=== PATIENT | female | born 1940 | race Caucasian/White ===

== ENCOUNTER 2017-03-21 09:22 | Emergency (ER) | payer MEDICARE ==
[2017-03-21 10:42] LABS: Hematocrit 41.3 % (36.0-47.0); Mean Platelet Volume 7.1 fL (7.4-10.4); Red Blood Cell (RBC) Count 3.85 mill/uL (4.20-5.40)
[2017-03-21 10:48] LABS: PTT 30.9 SEC (22.9-36.1); Prothrombin Time 13.9 SEC (12.0-14.7)
[2017-03-21 11:01] LABS: #Lymphocytes 0.5 thou/uL (1.20-3.40); #Monocytes 0.5 thou/uL (0.11-0.59); %Basophils 0.1 % (0.0-1.0); %Eosinophils 0.4 % (0.0-10.0); %Lymphocytes 8.5 % (21.0-51.0); %Monocytes 7.8 % (0.0-10.0)
[2017-03-21 11:02] LABS: Troponin I Less than 0.010 ng/mL (< 0.028)
[2017-03-21 11:05] LABS: Anion Gap 18 mmol/L (10-20); BUN (Urea Nitrogen) 17 mg/dL (9.8-20.1); CK (CPK) 48 U/L (29-168); Calc. Creatinine Clearance 0 mL/min (70-130); Calcium 8.6 mg/dL (7.8-10.44); Carbon Dioxide 20 mmol/L (23-31); Chloride 106 mmol/L (98-107); Estimated GFR-MDRD 83
[2017-03-21] MEDS ORDERED: Ondansetron ODT 4 MG TAB ONE (11:16)
--- NOTE | 2017-03-21 12:21 | RAD ---
AP VIEW LEFT SHOULDER: HISTORY: Fall. History of seizure. AP view left shoulder demonstrates what appears to be a fracture distal left clavicle. Left shoulde r single AP view is not in optimum anatomic position but appears to be otherwise unremarkable. IMPRESSION: Findings concerning for distal displaced left clavicular fracture. POS: [facility]
--- NOTE | 2017-03-21 12:33 | RAD ---
TWO VIEWS LEFT CLAVICLE: HISTORY: Trauma with left shoulder pain. FINDINGS: Two views left clavicle demonstrate a displaced overlapping mid to distal left clavicular fracture w ith inferior displacement of the distal fracture fragment. IMPRESSION: Displaced left clavicular fracture. POS: [facility]
--- NOTE | 2017-03-21 12:48 | CT ---
CT BRAIN: HISTORY: Trauma, 76-year-old female. FINDINGS: Noncontrast-enhanced CT images of the brain are obtained. There is a left frontoparietal scalp hematoma. The brain is unremarkable. No evidence of acute int racranial masses, hemorrhages, strokes, or contusions seen. The calvarium is intact. IMPRESSION: Left frontoparietal scalp hematoma; otherwise, unremarkable CT brain. POS: [facility]
--- NOTE | 2017-03-21 12:56 | CT ---
CT CERVICAL SPINE: HISTORY: A 76-year-old with a history of trauma. FINDINGS: Axial images are obtained with coronal and sagittal reconstructions. CT images cervical spine demon strate mild anterolisthesis of C3 on C4. There is disk space height loss with anterior and posterio r osteophytes at C4-5 and more significant disease is also seen at C5-6, C6-7, and C7-T1. Findings compatible with changes of spondylosis. No evidence of acute cervical spine fracture is seen. IMPRESSION: 1. Multilevel mid and lower cervical changes of spondylosis. 2. Multiple areas of heterogeneity are seen in the right and left thyroid lobes. These may represe nt thyroid lesions. Correlate with elective sonography. POS: [facility]
== END 2017-03-21 12:37 | disposition home or self-care (01) ==
LOC: ERS 09:22
DX: S42.032A Displaced fracture of lateral end of left clavicle, initial encounter for closed fracture (principal); G43.909 Migraine, unspecified, not intractable, without status migrainosus; G40.909 Epilepsy, unspecified, not intractable, without status epilepticus; Z79.899 Other long term (current) drug therapy; Z79.82 Long term (current) use of aspirin; W17.89XA Other fall from one level to another, initial encounter
CPT/HCPCS: 36415; 70450; 72125; 80048; 82550; 82553; 84484; 85025; 85610; 85730; 96372; J2270; Q0162

== ENCOUNTER 2017-07-21 15:37 | Outpatient (CLI) | payer MEDICARE ==
--- NOTE | 2017-07-21 16:34 | CT ---
CT HEAD NONCONTRAST 07/21/17 HISTORY: Fall. Dizziness. Headache. COMPARISON: 03/21/17 FINDINGS: There is no evidence of acute intracranial hemorrhage or infarct. The ventricles appear normal in siz e, shape, and position. Diffuse cortical atrophy and mild chronic ischemic small vessel disease are a pparent. The visualized paranasal sinuses remain well aerated. IMPRESSION: No acute intracranial abnormalities are demonstrated. POS: [facility]
== END 2017-07-21 15:38 | disposition home or self-care (01) ==
LOC: SCSCT 15:37
PROVIDERS: ATTEND Psychiatry & Neurology Neurology
DX: S06.890A Other specified intracranial injury without loss of consciousness, initial encounter (principal)
CPT/HCPCS: 70450

== ENCOUNTER 2017-11-10 10:56 | Emergency (ER) | payer MEDICARE ==
[2017-11-10 11:55] LABS: Bilirubin Negative (Negative); Blood, Urine Trace (Negative); Clarity CLEAR (Clear); Glucose, Urine (Dipstick) Negative (Negative); Leukocyte Negative (Negative); Nitrite Negative (Negative); Protein, Urine (Dipstick) Negative (Neg-Trace); Specific Gravity, Urine 1.008 (1.002-1.036); Urobilinogen 0.2 mg/dL (0.2-1.0); pH, Urine 6.5 (5.0-9.0)
[2017-11-10 12:01] LABS: Bacteria/HPF None Seen HPF (None Seen); Hyaline Casts/LPF 0-3 HYALINE CAST LPF (0-3 Hyaline); Pathc Cast-AUWi Flag 0.14 (0-2.49); RBC/HPF 0-3 HPF (0-3); Squamous Epithelial 0-3 HPF (0-3); WBC/HPF None Seen HPF (0-3)
[2017-11-10 12:44] LABS: #Lymphocytes 0.9 thou/uL (1.20-3.40); #Monocytes 0.6 thou/uL (0.11-0.59); #Neutrophils 2.8 thou/uL (1.40-6.50); %Basophils 0.9 % (0.0-1.0); %Eosinophils 0.7 % (0.0-10.0); %Lymphocytes 19.6 % (21.0-51.0); %Monocytes 13.5 % (0.0-10.0); %Neutrophils 65.4 % (42.0-75.0); Hemoglobin 13.5 g/dL (12.0-16.0); Mean Corpuscular HGB CONC 33.9 g/dL (32.0-36.0); Mean Corpuscular Hemoglobin 35.8 pg (27.0-31.0); Mean Platelet Volume 6.5 fL (7.4-10.4); Platelet Count 278 thou/uL (130-400); RBC Distribution Width 11.7 % (11.5-14.5); Red Blood Cell (RBC) Count 3.77 mill/uL (4.20-5.40); White Blood Cell (WBC) Count 4.3 thou/uL (4.8-10.8)
[2017-11-10 13:02] LABS: ALT (SGPT) 33 U/L (8-55); AST (SGOT) 26 U/L (5-34); Albumin 3.8 g/dL (3.4-4.8); Alkaline Phosphatase 69 U/L (40-150); Anion Gap 11 mmol/L (10-20); BUN (Urea Nitrogen) 13 mg/dL (9.8-20.1); Bilirubin, Total 0.3 mg/dL (0.2-1.2); CK (CPK) 46 U/L (29-168); Calc. Creatinine Clearance 0 mL/min (70-130); Calcium 8.8 mg/dL (7.8-10.44); Carbon Dioxide 24 mmol/L (23-31); Chloride 105 mmol/L (98-107); Estimated GFR-MDRD 84; Globulin 2.6 g/dL (2.4-3.5); Glucose 97 mg/dL (83-110); Potassium 3.6 mmol/L (3.5-5.1); Protein, Total 6.4 g/dL (6.0-8.3); Sodium 136 mmol/L (136-145)
[2017-11-10 13:04] LABS: MDiff Complete? YES; Macrocytosis SLIGHT = 6-15 cells (100X) (0-5/hpf); PLT Morphology Comment Appears Adequate
[2017-11-10 13:06] LABS: CKMB 0.6 ng/mL (0-6.6); Troponin I Less than 0.010 ng/mL (< 0.028)
--- NOTE | 2017-11-10 13:24 | CT ---
CT HEAD WITHOUT CONTRAST: Technique: Multiple axial tomograms were obtained through the head without IV enhancement. History: Metal status change. Comparison: 07-21-17 FINDINGS: Mild cortical volume loss. Ventricles are upper normal size, but stable. No evidence of intracranial mass, hemorrhage, or infarct. No interval change noted. IMPRESSION: No acute abnormality identified. POS: [facility]
--- NOTE | 2017-11-10 13:30 | RAD ---
PORTABLE CHEST ONE VIEW: Date: 11-10-17 Time: 12:27 p.m. History: Altered mental status. Dizziness. FINDINGS: Comparison is made with exam of 05-27-14. The heart size is borderline. The aorta is tortuous. There are post op changes in the left clavicle. No lobar consolidation, pneumothoraces, curt pulmonary edema or pleural effusions are seen. There ar e calcified breast implants. IMPRESSION: No acute process. POS: [facility]
--- NOTE | 2017-11-13 18:30 | EKG ---
Test Reason : Blood Pressure : / mmHG Vent. Rate : 081 BPM Atrial Rate : 081 BPM P-R Int : 184 ms QRS Dur : 072 ms QT Int : 374 ms P-R-T Axes : 061 -06 035 degrees QTc Int : 434 ms Normal sinus rhythm T wave abnormality, consider anterior ischemia Abnormal ECG Confirmed by MICKEY DYER D.O. ([id number]), video effects editor HAJA ANDERSON ([id number]) on 11/13/2017 6:29:44 PM Referred By: Confirmed By:MICKEY DYER D.O.
== END 2017-11-10 14:20 | disposition home or self-care (01) ==
LOC: ERS 10:56
DX: R42 Dizziness and giddiness (principal); R53.1 Weakness; G40.909 Epilepsy, unspecified, not intractable, without status epilepticus; G43.909 Migraine, unspecified, not intractable, without status migrainosus; Z79.899 Other long term (current) drug therapy
CPT/HCPCS: 36415; 70450; 71045; 80053; 81003; 81015; 82553; 84443; 84484; 85025; 93005

== ENCOUNTER 2017-11-17 16:57 | Emergency (ER) | payer MEDICARE ==
[2017-11-17 17:47] LABS: #Lymphocytes 0.8 thou/uL (1.20-3.40); #Monocytes 0.5 thou/uL (0.11-0.59); %Basophils 0.4 % (0.0-1.0); %Eosinophils 1.1 % (0.0-10.0); %Lymphocytes 17.9 % (21.0-51.0); %Monocytes 11.9 % (0.0-10.0); %Neutrophils 68.7 % (42.0-75.0); Hemoglobin 14.3 g/dL (12.0-16.0); Mean Corpuscular HGB CONC 33.8 g/dL (32.0-36.0); Mean Corpuscular Hemoglobin 35.6 pg (27.0-31.0); Mean Platelet Volume 7.2 fL (7.4-10.4); Platelet Count 266 thou/uL (130-400); Red Blood Cell (RBC) Count 4.02 mill/uL (4.20-5.40); White Blood Cell (WBC) Count 4.4 thou/uL (4.8-10.8)
[2017-11-17 18:15] LABS: CKMB 0.6 ng/mL (0-6.6); Troponin I Less than 0.010 ng/mL (< 0.028)
[2017-11-17 18:19] LABS: Bilirubin Negative (Negative); Blood, Urine Large (Negative); Clarity CLEAR (Clear); Glucose, Urine (Dipstick) Negative (Negative); Leukocyte Negative (Negative); Nitrite Negative (Negative); Protein, Urine (Dipstick) Negative (Neg-Trace); Specific Gravity, Urine 1.009 (1.002-1.036); Urobilinogen 0.2 mg/dL (0.2-1.0); pH, Urine 6.5 (5.0-9.0)
[2017-11-17 18:23] LABS: Bacteria/HPF None Seen HPF (None Seen); Hyaline Casts/LPF 4-6 HYALINE CAST LPF (0-3 Hyaline); RBC/HPF GREATER THAN 50-TNTC HPF (0-3); WBC/HPF 0-3 HPF (0-3)
--- NOTE | 2017-11-17 18:55 | RAD ---
PORTABLE CHEST: Date: 11-17-17 Provided Clinical History: Dizziness, weakness. FINDINGS: Comparison 11-10-17. Cardiac and mediastinal silhouette is unchanged in appearance. Post-operative changes involving the l eft clavicle, bilateral breast prostheses and metallic density overlying the right lung apex are agai n noted. There is no focal consolidation, pleural fluid or pneumothorax apparent. IMPRESSION: Stable radiographic appearance of the chest. POS: [facility]
[2017-11-17 18:58] LABS: Albumin 3.7 g/dL (3.4-4.8)
[2017-11-17 18:59] LABS: Chloride 107 mmol/L (98-107); Potassium 3.7 mmol/L (3.5-5.1); Sodium 137 mmol/L (136-145)
--- NOTE | 2017-11-17 18:59 | CT ---
CT BRAIN: Date: 11-17-17 Provided Clinical History: Dizziness and weakness. FINDINGS: Comparison is made with the study dated 11-10-17. The ventricular system is unchanged in size and morphology. There is no evidence for intracranial hem orrhage or mass effect. A region of hyposulcation and cortical thickening involving the right posteri or frontal region is redemonstrated, similar to the prior studies. There is no shift of the midline s tructures. The basilar cisterns appear patent. The extracranial soft tissues and osseous structures d emonstrate no acute findings. IMPRESSION: 1. No evidence for intracranial hemorrhage or mass effect. Stable CT of the brain with respect to the prior studies. 2. 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 This could be furth er investigated with nonemergent brain MRI as clinically indicated. POS: [facility]
[2017-11-17 19:00] LABS: Calcium 8.5 mg/dL (7.8-10.44)
[2017-11-17 19:01] LABS: Globulin 2.6 g/dL (2.4-3.5); Glucose 106 mg/dL (83-110); Protein, Total 6.3 g/dL (6.0-8.3)
[2017-11-17 19:02] LABS: Anion Gap 11 mmol/L (10-20); Bilirubin, Total 0.3 mg/dL (0.2-1.2); Carbon Dioxide 23 mmol/L (23-31)
[2017-11-17 19:03] LABS: Alkaline Phosphatase 63 U/L (40-150)
[2017-11-17 19:04] LABS: Calc. Creatinine Clearance 0 mL/min (70-130); Estimated GFR-MDRD 85
[2017-11-17 19:05] LABS: BUN (Urea Nitrogen) 15 mg/dL (9.8-20.1)
[2017-11-17 19:06] LABS: ALT (SGPT) 32 U/L (8-55); AST (SGOT) 24 U/L (5-34)
== END 2017-11-17 22:54 | disposition home or self-care (01) ==
LOC: ERS 16:57
DX: E86.0 Dehydration (principal); G40.909 Epilepsy, unspecified, not intractable, without status epilepticus; G43.909 Migraine, unspecified, not intractable, without status migrainosus; Z79.82 Long term (current) use of aspirin; Z79.899 Other long term (current) drug therapy
CPT/HCPCS: 36415; 51701; 70450; 71045; 80053; 81003; 81015; 82553; 84484; 85025; 93005; 96360; 96361; A4353

== ENCOUNTER 2017-11-23 14:03 | Emergency (ER) | payer MEDICARE ==
--- NOTE | 2017-11-23 15:04 | RAD ---
LEFT KNEE 4 VIEWS: Date: 11/23/17 HISTORY: Trauma. Pain. Fall. COMPARISON: None. FINDINGS: There is degenerative change involving all three compartments, greatest along the lateral compartment . No fracture or malalignment. There is diffuse bone demineralization. No significant joint fluid. IMPRESSION: No post-traumatic change. Chronic changes as described above. POS: [facility]
--- NOTE | 2017-11-23 15:10 | RAD ---
THREE VIEWS LEFT ANKLE: Date: 11-23-17 Comparison: None. History: Trauma, pain. FINDINGS: There is post-operative hardware associated with the distal left fibula/lateral malleolus as well as the medial malleolus. The bones appear somewhat demineralized. The talar dome and the ankle mortise a ppear intact. No acute fracture or evidence of dislocation is seen. IMPRESSION: Chronic findings as detailed above. No acute findings are seen. POS: [facility]
--- NOTE | 2017-11-23 15:11 | RAD ---
THREE VIEWS RIGHT ANKLE: Date: 11-23-17 History: Fall, trauma, pain. FINDINGS: The bones are demineralized. The talar dome and ankle mortise appear intact. There is no displaced fr acture or evidence of dislocation seen. IMPRESSION: No acute findings. POS: [facility]
--- NOTE | 2017-11-23 15:12 | RAD ---
FOUR VIEWS RIGHT KNEE: Date: 11-23-17 Comparison: None. History: Fall, trauma, pain. FINDINGS: There is no knee joint effusion, displaced fracture, or evidence of dislocation seen. There is mild m edial and lateral compartment narrowing. IMPRESSION: No acute findings. POS: [facility]
== END 2017-11-23 15:26 | disposition home or self-care (01) ==
LOC: SCSER 14:03
DX: S90.02XA Contusion of left ankle, initial encounter (principal); S90.01XA Contusion of right ankle, initial encounter; S80.02XA Contusion of left knee, initial encounter; S80.01XA Contusion of right knee, initial encounter; W19.XXXA Unspecified fall, initial encounter; G40.909 Epilepsy, unspecified, not intractable, without status epilepticus; G43.909 Migraine, unspecified, not intractable, without status migrainosus
CPT/HCPCS: 36415; 82607; 84436

== ENCOUNTER 2018-01-07 03:23 | Emergency (ER) | payer MEDICARE ==
--- NOTE | 2018-01-07 07:55 | CT ---
PRELIMINARY REPORT/[facility]/EMERGENTY AFTER-HOURS PROCEDURE CT Head Without Intravenous Contrast CLINICAL HISTORY: 77 years old, female; Injury or trauma; Fall; Initial encounter; Abrasion; Not specified; Patient HX: Previous on pacs; Er 8; , F77 presents to ed for mechanical fall. Ems reports mechanical fall that w as witnessed by pt's caregiver. Ems reports left leg swelling and reports pt is unable to bear weight on her left leg. Pt reports falling backwards and hitting her head. Ems reports HX of dementia. TECHNIQUE: Axial computed tomography images of the head/brain without intravenous contrast. COMPARISON: No relevant prior studies available. FINDINGS: No definite acute skull fracture. Included paranasal sinuses are essentially clear. No acute intracranial hemorrhage or mass effect. Ventricle size is normal for age. There is mild, relatively symmetrical decreased attenuation in the periventricular white matter, like ly from microvascular disease. No definite acute infarct by CT. IMPRESSION: No acute intracranial bleed or mass effect. Changes of microvascular disease. Thank you for allowing us to participate in the care of your patient. Dictated and Authenticated by: Augie Mckeon MD 01/07/2018 5:23 AM Central Time ([place] & [place]) FINAL REPORT HEAD CT WITHOUT CONTRAST: HISTORY: Trauma. Mechanical fall. Posttraumatic pain. COMPARISON: None. TECHNIQUE: Noncontrast head CT is performed from the skull base to the skull vertex. FINDINGS: This report is in agreement with the preliminary report by [facility]. No acute intracranial process. POS: [facility]
--- NOTE | 2018-01-07 08:02 | RAD ---
2 VIEWS LEFT ANKLE: Date: 01/07/18 COMPARISON: 11/23/17. HISTORY: Fall with left ankle pain. FINDINGS: Two views of the left ankle show the patient to be status post open reduction and internal fixation o f the medial malleolus with two screws in the distal fibula with a plate and screws. There appears to be an acute fracture in the distal tibial metaphysis above the medial malleolus screws. This was not seen on the prior examination. IMPRESSION: New acute fracture of the distal tibia. POS: [facility]
--- NOTE | 2018-01-07 08:03 | RAD ---
2 VIEWS LEFT TIBIA AND FIBULA: Date: 01/07/18 COMPARISON: Ankle radiograph dated 11/23/17. FINDINGS: Fall with left leg pain. FINDINGS: Two views of the left leg show hardware surrounding the ankle. In the distal tibial metaphysis, there is a lucency from an acute fracture just above the hardware. Surrounding soft tissue swelling is see n. IMPRESSION: Acute fracture of the distal tibial metaphysis. POS: [facility]
--- NOTE | 2018-01-07 08:04 | RAD ---
SINGLE VIEW LEFT HIP: Date: 01/07/18 HISTORY: Fall with left leg pain. FINDINGS: Single view of the left hip shows the patient to be status post left hip arthroplasty without perihar dware lucency or fracture. No focal soft tissue swelling is seen. IMPRESSION: No evidence of acute osseous abnormality. POS: [facility]
--- NOTE | 2018-01-07 09:20 | CON ---
DATE OF CONSULTATION: 01/07/2018 ORTHOPEDIC CONSULTATION NOTE PRINCIPAL DIAGNOSIS: Left extraarticular distal tibia fracture. BRIEF HISTORY OF PRESENT ILLNESS: Patient is a 77-year-old lady with a history of dementia who has s ustained recent multiple falls. By EMS report, patient fell backwards on 01/07/2018 while at her res idence at an assisted living facility. She fell backwards striking her head and sustaining injury to the left lower extremity. Workup in the emergency room included a CT scan of the head that did not show any acute changes and x-ray of the left leg shows a distal tibia fracture that is extraarticular and oblique in the metaphyseal region as well as retained hardware from a previous ankle fracture. Orthopedic consultation requested to ensure the patient would be a reasonable candidate for transfer to [facility] and that her tibia would be nonsurgical in management. PAST MEDICAL HISTORY: Remarkable for history of epilepsy, migraine and dementia. PAST SURGICAL HISTORY: Includes right knee surgery, left ankle surgery with open reduction and inter nal fixation which she estimates to be nearly 20 years ago, appendectomy, hysterectomy, breast augmen tation. SOCIAL HISTORY: She is a nonsmoker. Denies alcohol or recreational drug use. FAMILY HISTORY: Noncontributory. REVIEW OF SYSTEMS: Denies recent fevers, chills or sweats. Denies chest pain or shortness of breath . Denies numbness or tingling in the lower extremity. MEDICATIONS: Include aspirin, estradiol, DHEA, alendronate, Keppra, Dilantin, phenobarbital, progest erone and Flexeril ALLERGIES: None known. PHYSICAL EXAMINATION: VITAL SIGNS: Temperature 98.6, heart rate of 75, respiratory rate of 14 and blood pressure of 138/68 . HEENT: Atraumatic, normocephalic. HEART: Shows a regular rate and rhythm without murmur. LUNGS: Remarkable for breathing that is unlabored. NECK/BACK: She denies neck or back pain. EXTREMITIES: Left lower extremity remarkable for swelling and just a slight apex anterior deformity at the distal tibial metaphysis. She has a scar overlying the dorsal aspect of her second toe, altho ugh denies prior surgery in this area. She is able to wiggle her toes and has normal intact sensatio n over the dorsal and plantar surface of the foot. She has pain to palpation at the ankle. She does have bruising of different ages along the anterior knee consistent with multiple falls. The knee an d hip are otherwise atraumatic on the left side. IMAGING DATA: X-ray review of left ankle, x-rays remarkable for a prior surgery with small fragment locking plate on the fibula and 2 partially threaded cancellous screws at the medial malleolus. This new fracture now occurs just proximal to these medial screws and then the trial was an oblique fashi on along the distal tibial metaphyseal bone. On AP view, there is near anatomic alignment; on latera l view just a very slight recurvatum deformity on x-ray. PROCEDURE: After discussion with patient regarding treatment options including surgical versus nonsu rgical management, we decided to proceed with nonsurgical management given the minimal displacement p resent. As such, a well molded posterior and stirrup splint was applied to the ankle with the ankle approaching neutral dorsiflexion. This resulted in improved alignment and improved pain control. PLAN: At this time, patient is a candidate for transfer to [facility] as there will be no surgical intervention. I would like to see her back in the office in 1 week's time for reevaluation and antic ipated casting. I would anticipate casting of approximately 8 weeks and then a possible conversion t o a walker boot once evidence of bridging callus was visualized on x-ray. Over the next 24-48 hours, patient should elevate the ankle as much as possible and apply ice to the dorsal surface of the ankl e to help to minimize swelling.
== END 2018-01-07 09:50 ==
LOC: ERS 03:23
DX: S82.302A Unspecified fracture of lower end of left tibia, initial encounter for closed fracture (principal); F03.90 Unspecified dementia, unspecified severity, without behavioral disturbance, psychotic disturbance, mood disturbance, and anxiety; G40.909 Epilepsy, unspecified, not intractable, without status epilepticus; G43.909 Migraine, unspecified, not intractable, without status migrainosus; Z79.82 Long term (current) use of aspirin; Z79.899 Other long term (current) drug therapy; W01.0XXA Fall on same level from slipping, tripping and stumbling without subsequent striking against object, initial encounter
CPT/HCPCS: 27824; 70450; 96374; 96376; J2270

== ENCOUNTER 2018-03-02 00:02 | Observation (INO) | payer MEDICARE ==
[2018-03-02 00:59] LABS: #Eosinphils 0.1 thou/uL (0.0-0.7); #Lymphocytes 0.6 thou/uL (1.20-3.40); #Monocytes 0.6 thou/uL (0.11-0.59); #Neutrophils 5.3 thou/uL (1.40-6.50); %Basophils 0.2 % (0.0-1.0); %Eosinophils 1.1 % (0.0-10.0); %Lymphocytes 9.5 % (21.0-51.0); %Monocytes 8.5 % (0.0-10.0); %Neutrophils 80.7 % (42.0-75.0); Hemoglobin 14.7 g/dL (12.0-16.0); Mean Corpuscular HGB CONC 33.8 g/dL (32.0-36.0); Mean Corpuscular Hemoglobin 35.8 pg (27.0-31.0); Mean Platelet Volume 7.1 fL (7.4-10.4); Platelet Count 313 thou/uL (130-400); RBC Distribution Width 11.5 % (11.5-14.5); White Blood Cell (WBC) Count 6.6 thou/uL (4.8-10.8)
[2018-03-02 01:10] LABS: ALT (SGPT) 34 U/L (8-55); AST (SGOT) 27 U/L (5-34); Albumin 4.3 g/dL (3.4-4.8); Alkaline Phosphatase 119 U/L (40-150); Anion Gap 16 mmol/L (10-20); BUN (Urea Nitrogen) 24 mg/dL (9.8-20.1); Bilirubin, Total 0.2 mg/dL (0.2-1.2); Calc. Creatinine Clearance 0 mL/min (70-130); Calcium 9.6 mg/dL (7.8-10.44); Carbon Dioxide 21 mmol/L (23-31); Chloride 104 mmol/L (98-107); Estimated GFR-MDRD 68; Globulin 3.2 g/dL (2.4-3.5); Glucose 132 mg/dL (83-110); Potassium 3.7 mmol/L (3.5-5.1); Protein, Total 7.5 g/dL (6.0-8.3); Sodium 137 mmol/L (136-145)
[2018-03-02 01:13] LABS: CKMB 1.2 ng/mL (0-6.6); Troponin I Less than 0.010 ng/mL (< 0.028)
[2018-03-02 02:26] LABS: Bilirubin Negative (Negative); Blood, Urine Negative (Negative); Clarity CLEAR (Clear); Glucose, Urine (Dipstick) Negative (Negative); Leukocyte Negative (Negative); Nitrite Negative (Negative); Protein, Urine (Dipstick) Negative (Neg-Trace); Specific Gravity, Urine 1.011 (1.002-1.036); Urobilinogen 0.2 mg/dL (0.2-1.0)
[2018-03-02 05:12] VITALS: BMI 22.4
[2018-03-02] MEDS ORDERED: Ondansetron ODT 4 MG TAB PO PRN (07:22)
[2018-03-02] MEDS ORDERED: Acetaminophen 325 MG TAB PO PRN (07:22)
--- NOTE | 2018-03-02 08:08 | HP ---
PRIMARY CARE PROVIDER: Dr. Ron at [facility]. CHIEF COMPLAINT: Referred to the [facility] by [facility] for syncope. HISTORY OF PRESENT ILLNESS: The patient is awake and alert. She does not know why she is in the hospital. She does not remember fainting or being brought to the hospital. She has no double vision, no focal weakness. No trouble speaking. She was noted to have orthostatic hypotension in the ER and referred. PAST MEDICAL HISTORY: Lifelong seizure disorder and a history of hormonal imbalance and also she has osteoporosis. CURRENT MEDICATIONS: Fosamax 70 mg every 7 days, aspirin 81 mg a day, Flexeril 5 mg p.o. q.8 hours p.r.n., estradiol 1.5 mg a day, hydrocodone/acetaminophen 10 /325 one q.4 hours, levetiracetam 500 mg twice a day, levothyroxine 50 mcg a day , phenobarbital 32.4 mg at bedtime, Dilantin 400 mg at bedtime, DHEA 25 mg daily , progesterone 10 mg IM daily, Seroquel 100 mg at bedtime, ropinirole 1 mg t.i.d., Zonegran 100 mg at bedtime. ALLERGIES: No known drug allergies. PAST SURGICAL HISTORY: History of bilateral breast implants, appendectomy, right knee surgery, left ankle surgery for fracture. FAMILY HISTORY: Brother with coronary artery disease and diabetes, both parents are with coronary artery disease. SOCIAL HISTORY: Single, lives at a local assisted living. No tobacco, no alcohol. Code status is full. No family. REVIEW OF SYSTEMS: General:. No headaches, fainting that she remembers or dizziness. Eyes: No double vision, blurred vision, flashing lights. ENT: No ear pain or drainage. No nasal bleeding. No trouble swallowing. Cardiac: No chest pain, orthopnea or paroxysmal nocturnal dyspnea. Respiratory: No cough, wheezing or asthma. Gastrointestinal: No nausea, vomiting, abdominal pain, diarrhea or melena. Genitourinary: No hematuria or dysuria. Musculoskeletal: Occasional swelling in legs. No pain in her muscles or joints. Neurological: No history of stroke. She has had lifelong seizure disorder, controlled on medications. Psychiatric: She denies any psychiatric illness; however, she is on Seroquel. Skin: No history of bruising, bleeding or rash. Heme/Lymph: No tender or swollen lymph nodes in axilla, inguinal or cervical area. PHYSICAL EXAMINATION: GENERAL: Patient is alert, oriented, when asked about location, she said she was in [place]. When I reminded her she is in [place], she has had I came home. She does know it is 2018 and she knows that Mr. Lauren is president. VITAL SIGNS: Blood pressure supine 153/68, sitting 145/52, standing 97/53, pulse 84, respirations 16. HEENT: Pupils equal and round. Extraocular movements are intact. Sclerae white. Tympanic membranes clear. Nose clear. Oral mucous membranes are wet. NECK: No jugular venous distention, adenopathy or thyromegaly. CHEST: Clear to auscultation and percussion. HEART: Regular rate and rhythm. First and second heart sounds are clear. No murmurs or gallops. ABDOMEN: Soft, bowel sounds are normal. There is no hepatosplenomegaly, no mass, no rebound, no bruits. EXTREMITIES: Reveal no cyanosis, clubbing or edema. PULSES: Carotid, radial, femoral, and dorsalis pedis pulses intact. SKIN: Warm and dry without bruises or rash. HEME/LYMPH: No tender or swollen lymph nodes in axilla, inguinal or cervical area. No petechial hemorrhages. NEUROLOGIC: Cranial nerves II through XII are intact. Deep tendon reflexes symmetric. Moves all extremities. Toes downgoing. IMAGING: Brain CT reviewed by me, some calcification in the cerebellar area. No acute hemorrhage, mass effect, etc. EKG: Regular sinus rhythm, first degree block, no acute findings reviewed by me. LABORATORY DATA: Urine clear. Comprehensive metabolic profile normal except for sugar of 132, BUN of 24, CO2 of 21. CBC: White count 6.6, hemoglobin 14.7 , platelet count 313. ADMITTING DIAGNOSES: Syncope, orthostatic hypotension, seizure disorder, hypothyroidism, senile dementia. PLAN: Carotid ultrasound. Cortisol level. Serial exams. Continue home medicines. I will not continue the cyclobenzaprine or the hydrocodone. MTDD
[2018-03-02] MEDS: Enoxaparin Sodium 40 MG/0.4 ML SYRINGE SC SCH (08:49)
[2018-03-02] MEDS: Estradiol 1 MG TAB PO SCH (08:50)
[2018-03-02] MEDS: Levothyroxine Sodium 50 MCG TAB PO SCH (08:50)
[2018-03-02] MEDS: rOPINIRole HCl 1 MG TAB PO SCH ×3 (08:50→22:34)
[2018-03-02] MEDS: levETIRAcetam 500 MG TAB PO SCH ×2 (08:50→22:33)
[2018-03-02] MEDS ORDERED: PROGESTERONE IM SCH (09:00)
[2018-03-02] MEDS ORDERED: DHEA 25 MG PO SCH (09:00)
[2018-03-02] MEDS ORDERED: Non-Formulary Item 1 EACH (Prasterone (Dhea) [Dhea] 25 MG) PO SCH (09:00)
[2018-03-02] MEDS ORDERED: [UNRECOGNIZED DRUG - OTHER] IM SCH (09:00)
--- NOTE | 2018-03-02 10:06 | CT ---
PRELIMINARY REPORT/[facility]/EMERGENTY AFTER-HOURS PROCEDURE CT Head Without Intravenous Contrast CLINICAL HISTORY: 77 years old, female; Signs and symptoms; Syncope and collapse; Patient HX: Betsy virgen is a 77 year ol d f with a pmh of hypothyroidism, epilepsy, and migraines was brought to the ed by ems after a fall a t [facility]. Caregiver states patient was using walker to go to the restroom. Caregiver was nearby and heard patient yell out and within seconds caregiver was in restroom and saw patient sitting on walker were her head leaning back. Pt told caregiver that she got dizzy and fell b ack TECHNIQUE: Axial computed tomography images of the head/brain without intravenous contrast. COMPARISON: No relevant prior studies available. FINDINGS: No definite acute skull fracture. Included paranasal sinuses are essentially clear. No acute intracranial hemorrhage or mass effect. Ventricle size is normal for age. There is mild, relatively symmetrical decreased attenuation in the periventricular white matter, like ly from microvascular disease. No definite acute infarct by CT. MRI could be more sensitive/specific for detection, as clinically di rectbronson. IMPRESSION: No acute intracranial bleed or mass effect. Changes of microvascular disease. No definite acute infarct by CT, see above. Thank you for allowing us to participate in the care of your patient. Dictated and Authenticated by: Augie Mckeon MD 03/02/2018 2:41 AM Central Time ([place] & [place]) FINAL REPORT EMERGENCY AFTER HOURS BRAIN CT WITHOUT IV CONTRAST: Date: 03/02/18 Time: 0154 hours COMPARISON: 01/07/18. FINDINGS/IMPRESSION: Motion artifact. Atrophy and chronic white matter ischemic change without mass, bleed, or other acute process. Little change from prior exam. Report in agreement with preliminary report given on-call by Bartolo. POS: [facility]
--- NOTE | 2018-03-02 10:46 | ULT ---
CAROTID ULTRASOUND: HISTORY: Syncope. COMPARISON: None. TECHNIQUE: Multiplanar joseph-scale and color Doppler images were obtained in a carotid ultrasound. FINDINGS: No significant plaque is seen in either common or internal carotid arteries. The Doppler waveforms a re normal bilaterally. The peak systolic velocity in the right ICA is 93 cm per second. The peak systolic velocity in the r ight CCA is 93 cm per second. The right ICA/CCA ratio is 1.0. The peak systolic velocity in the left ICA is 80 cm per second. The peak systolic velocity in the le ft CCA is 76 cm per second. The left ICA/CCA ratio is 1.1. Both vertebral arteries demonstrate antegrade flow without focal stenosis. IMPRESSION: No evidence of hemodynamically significant stenosis. POS: [facility]
[2018-03-02] MEDS ORDERED: PHENobarbital 32.4 MG TAB PO SCH (21:00)
[2018-03-02] MEDS ORDERED: Zonisamide 100 MG CAP PO SCH (21:00)
[2018-03-02] MEDS ORDERED: Loratadine 10 MG TAB PO PRN (23:12)
[2018-03-03 08:05] VITALS: BP 157/71; TEMP 98.5
[2018-03-03] MEDS: Levothyroxine Sodium 50 MCG TAB PO SCH (09:14)
[2018-03-03] MEDS: levETIRAcetam 500 MG TAB PO SCH (09:14)
[2018-03-03] MEDS: Enoxaparin Sodium 40 MG/0.4 ML SYRINGE SC SCH (09:14)
[2018-03-03] MEDS: Estradiol 1 MG TAB PO SCH (09:14)
[2018-03-03] MEDS: rOPINIRole HCl 1 MG TAB PO SCH (09:14)
--- NOTE | 2018-03-03 10:00 | DIS ---
TRANSFER OF CARE NOTE PRIMARY CARE PHYSICIAN: Dr. Ron DATE OF ADMISSION: 03/02/2018 DATE OF DISCHARGE: 03/03/2018 DISCHARGE DISPOSITION: Home. FINAL DIAGNOSES: 1. Syncope. 2. Orthostatic hypotension. 3. Seizure disorder. 4. Hypothyroidism. DISCHARGE MEDICATIONS: The same as her home medicines, Levothyroxine 50 mcg a day, Ropinirole, 1 mg t.i.d., Zonegran 100 mg at bedtime, Seroquel 100 mg at bedtime, Dilantin 400 mg at bedtime, phenobarb ital 32.4 mg a day, levetiracetam 500 mg b.i.d., estradiol 1.5 mg a day, Prasterone 25 mg a day, Flex eril 5 mg q.8 hours p.r.n., aspirin 81 mg a day, Fosamax 70 mg a day, hydrocodone 10/325 one every 4 hours as needed for pain. ALLERGIES: No known medical allergies. DIET: Diet as tolerated. PENDING AT TIME OF DISCHARGE: Nothing. CODE STATUS: Full resuscitation. HOSPITAL COURSE: The patient admitted [facility] faint. She has no memory of the f aint. She had no double vision, no weakness, no trouble speaking. She was noted to have orthostatic blood pressure in the ER and referred here. She had a lifelong seizure disorder. Her laboratory; comp metabolic profile was normal except for CO2 of 21, BUN 24, glucose 132. TSH was normal at 1.58. Cortisol was normal at 11. Dilantin level was slightly low at 6.2. Levetiracetam 22.3. CBC was unremarkable except for mild macrocytic indices. The patient was monitored for 24 jonah rs. She had a first degree block, no evidence of arrhythmia. Blood pressure remained stable. Her b lood pressure dropped from supine to sitting it is 157/71 to 129/61. She does not currently have any dizziness arising. She is being discharged back to her assisted living area on her home medicines. CONSULTATIONS: None. PROCEDURES: None. FOLLOWUP: Follow up in [address] Ron. While the patient had no evidence of seizure disorder, brain CT was unremarkable. He may wish to raise her Dilantin level or to split the dose since she is having a heavy dose once a day.
[2018-03-04] MEDS ORDERED: Levothyroxine Sodium 50 MCG TAB PO SCH (06:00)
== END 2018-03-03 11:11 | disposition home or self-care (01) ==
LOC: ERS 00:02 → 2SW 02:55
PROVIDERS: ADMIT Internal Medicine; ATTEND Internal Medicine
DX: I95.1 Orthostatic hypotension (principal); G40.909 Epilepsy, unspecified, not intractable, without status epilepticus; E03.9 Hypothyroidism, unspecified; Z79.899 Other long term (current) drug therapy
CPT/HCPCS: 70450; 80177; 80185; 81003; 82533; 82553; 84484; 87086; 93005; 93880; 96360; 96361; 96372 ×2; 99285; G0378 ×2; 36415; 80053; 84443; 85025; J1650

== ENCOUNTER 2018-03-23 13:50 | Emergency (ER) | payer MEDICARE ==
[2018-03-23 14:30] LABS: #Eosinphils 0.1 thou/uL (0.0-0.7); #Lymphocytes 0.9 thou/uL (1.20-3.40); #Monocytes 0.7 thou/uL (0.11-0.59); #Neutrophils 3.6 thou/uL (1.40-6.50); %Basophils 0.1 % (0.0-1.0); %Eosinophils 1.1 % (0.0-10.0); %Lymphocytes 17.7 % (21.0-51.0); %Monocytes 12.6 % (0.0-10.0); %Neutrophils 68.4 % (42.0-75.0); Hemoglobin 12.6 g/dL (12.0-16.0); Mean Corpuscular Hemoglobin 33.9 pg (27.0-31.0); Mean Platelet Volume 6.6 fL (7.4-10.4); Platelet Count 310 thou/uL (130-400); RBC Distribution Width 11.6 % (11.5-14.5); Red Blood Cell (RBC) Count 3.72 mill/uL (4.20-5.40); White Blood Cell (WBC) Count 5.2 thou/uL (4.8-10.8)
[2018-03-23 14:48] LABS: ALT (SGPT) 21 U/L (8-55); AST (SGOT) 16 U/L (5-34); Albumin 3.5 g/dL (3.4-4.8); Alkaline Phosphatase 103 U/L (40-150); Anion Gap 11 mmol/L (10-20); BUN (Urea Nitrogen) 19 mg/dL (9.8-20.1); Bilirubin, Total 0.2 mg/dL (0.2-1.2); Calc. Creatinine Clearance 0 mL/min (70-130); Calcium 8.5 mg/dL (7.8-10.44); Carbon Dioxide 22 mmol/L (23-31); Chloride 108 mmol/L (98-107); Estimated GFR-MDRD 70; Globulin 2.9 g/dL (2.4-3.5); Glucose 116 mg/dL (83-110); Potassium 3.9 mmol/L (3.5-5.1); Protein, Total 6.4 g/dL (6.0-8.3); Sodium 137 mmol/L (136-145)
--- NOTE | 2018-03-23 14:59 | CT ---
CT BRAIN: Date: 03-23-18 Provided Clinical History: Syncope. FINDINGS: The ventricular system appears unchanged in size and morphology with respect to 03-02-18. There is no e vidence for intracranial hemorrhage or mass effect. The extracranial soft tissues and osseous structu res demonstrate no acute abnormality. IMPRESSION: 1. No evidence for intracranial hemorrhage or mass effect. POS: [facility]
[2018-03-23 15:38] LABS: Bilirubin Negative (Negative); Blood, Urine Negative (Negative); Clarity CLEAR (Clear); Glucose, Urine (Dipstick) Negative (Negative); Leukocyte Negative (Negative); Nitrite Negative (Negative); Protein, Urine (Dipstick) Negative (Neg-Trace); Specific Gravity, Urine 1.015 (1.002-1.036); Urobilinogen 0.2 mg/dL (0.2-1.0); pH, Urine 7.5 (5.0-9.0)
--- NOTE | 2018-03-26 14:53 | EKG ---
Test Reason : Blood Pressure : / mmHG Vent. Rate : 093 BPM Atrial Rate : 093 BPM P-R Int : 206 ms QRS Dur : 070 ms QT Int : 366 ms P-R-T Axes : 028 019 052 degrees QTc Int : 455 ms Normal sinus rhythm Normal ECG Confirmed by TONY HENDERSON, NATALIA Mcgee ([id number]), assistant editor YOSVANY LEI ([id number]) on 03/26/2018 2:52:48 PM Referred By: Confirmed By:NATALIA JIMENEZ MD
== END 2018-03-23 16:19 | disposition home or self-care (01) ==
LOC: ERS 13:50
DX: R53.1 Weakness (principal); G40.909 Epilepsy, unspecified, not intractable, without status epilepticus; G43.909 Migraine, unspecified, not intractable, without status migrainosus; F03.90 Unspecified dementia, unspecified severity, without behavioral disturbance, psychotic disturbance, mood disturbance, and anxiety; Z79.899 Other long term (current) drug therapy; Z79.82 Long term (current) use of aspirin
CPT/HCPCS: 36415; 70450; 80053; 81003; 83605; 85025; 93005

== ENCOUNTER 2018-04-07 14:08 | Emergency (ER) | payer MEDICARE ==
--- NOTE | 2018-04-07 16:37 | ULT ---
VENOUS DUPLEX SONOGRAM LEFT LOWER EXTREMITY: Date: 04/07/18 HISTORY: Left leg pain and edema. FINDINGS: The left common femoral vein and greater saphenous junction were evaluated along with the femoral, de ep femoral, popliteal, and posterior tibial veins. There is good color and spectral Doppler flow, com pression, and augmentation. IMPRESSION: No sonographic evidence of deep venous thrombosis within the left lower extremity. POS: [facility]
== END 2018-04-07 18:42 | disposition home or self-care (01) ==
LOC: ERS 14:08
DX: R60.0 Localized edema (principal)

== ENCOUNTER 2018-04-21 04:13 | Emergency (ER) | payer MEDICARE ==
[2018-04-21] MEDS ORDERED: Adacel (T-DAP) 0.5 ML VIAL ONE (04:39)
--- NOTE | 2018-04-21 10:39 | CT ---
PRELIMINARY REPORT/[facility]/EMERGENTY AFTER-HOURS PROCEDURE CT Head Without Intravenous Contrast EXAM DATE/TIME: 04/21/2018 5:01 AM CLINICAL HISTORY: 77 years old, female; Injury or trauma; Fall; Initial encounter; Abrasion and blunt trauma (contusion s or hematomas); Forehead; Patient HX: F77 reports to ed via ems C/O mechanical fall. PT reports she got up to go to the bathroom this morning and slipped and fell. PT reports she did have loc. PT repor ts she hit her head on the bathtub. PT denies any other pain at this time, other than her head where she hit. PT denies taking blood thinners. TECHNIQUE: Axial computed tomography images of the head/brain without intravenous contrast. COMPARISON: No relevant prior studies available. FINDINGS: Brain: Age appropriate atrophy and small vessel ischemic change. No mass effect, midline shift or ext ra axial fluid collections. Klein-white matter differentiation is normal. Ventricles: Normal. No ventriculomegaly. Bones/joints: Normal. No acute fracture. Sinuses: Normal as visualized. No acute sinusitis. Mastoid air cells: Normal as visualized. No mastoid effusion. Orbits: The patient has had bilateral lens replacement surgery. Soft tissues: There is mild left frontal scalp swelling and laceration. Vasculature: Carotid atherosclerotic calcification. IMPRESSION: No acute intracranial injury. Thank you for allowing us to participate in the care of your patient. Dictated and Authenticated by: Tae Montiel MD 04/21/2018 5:27 AM Central Time ([place] & [place]) FINAL REPORT CT HEAD NONCONTRAST PERFORMED ON AN EMERGENCY BASIS: Date: 04/21/18 Time: 0503 hours HISTORY: Fall. Head injury. COMPARISON: 03/23/18. FINDINGS: Findings agree with the preliminary report by [facility]. No acute intracranial abnormalities are demonstra mickey. Soft tissue swelling over the left frontal calvarium. POS: [facility]
--- NOTE | 2018-04-21 10:41 | CT ---
PRELIMINARY REPORT/[facility]/EMERGENTY AFTER-HOURS PROCEDURE CT Cervical Spine Without Intravenous Contrast EXAM DATE/TIME: 04/21/2018 5:01 AM CLINICAL HISTORY: 77 years old, female; Injury or trauma; Fall; Initial encounter; Abrasion and concussion /head injury ; Patient HX: F77 reports to ed via ems C/O mechanical fall. PT reports she got up to go to the bathr oom this morning and slipped and fell. PT reports she did have loc. PT reports she hit her head on th e bathtub. PT denies any other pain at this time, other than her head where she hit. PT denies taking blood thinners. ; Additional info: C-spine also sent separatly. Please ignore extra images on this e xam. TECHNIQUE: Axial computed tomography images of the cervical spine without intravenous contrast. COMPARISON: No relevant prior studies available. FINDINGS: Vertebrae: There are marked degenerative changes present. Normal alignment. No acute fractures. Soft tissues: There is a left convex curvature which may be due to positioning or muscle spasm. Thyroid: Probable cysts or nodules throughout the thyroid, measuring up to 1.6 cm on the right. DISCS/SPINAL CANAL/NEURAL FORAMINA: C2-C3: No disc herniation. No spinal stenosis. No neural foraminal narrowing. C3-C4: No disc herniation. No spinal stenosis. No neural foraminal narrowing. C4-C5: There is disc space narrowing with degenerative endplate changes at C4-5 through C7-T1. C5-C6: No disc herniation. No spinal stenosis. No neural foraminal narrowing. C6-C7: No disc herniation. No spinal stenosis. No neural foraminal narrowing. C7-T1: No disc herniation. No spinal stenosis. No neural foraminal narrowing. IMPRESSION: Severe degenerative changes. No acute injury. Probable multinodular goiter. Ultrasound and possible biopsy may be helpful in further evaluating thi s. Thank you for allowing us to participate in the care of your patient. Dictated and Authenticated by: Tae Montiel MD 04/21/2018 5:31 AM Central Time ([place] & [place]) FINAL REPORT EMERGENCY AFTER HOURS CT CERVICAL SPINE NONCONTRAST: Date: 04/21/18 Time: 0501 hours HISTORY: Fall. Neck injury. FINDINGS: Findings agree with the preliminary report by [facility]. Degenerative changes of the cervical spine. No ac [place] osseous abnormalities are demonstrated. Heterogeneous appearance of the thyroid gland may represe nt a multinodular goiter. These findings are stable compared to the 03/21/17 exam. POS: [facility]
--- NOTE | 2018-04-23 11:36 | EKG ---
Test Reason : FALL Blood Pressure : / mmHG Vent. Rate : 085 BPM Atrial Rate : 085 BPM P-R Int : 204 ms QRS Dur : 062 ms QT Int : 374 ms P-R-T Axes : 058 005 030 degrees QTc Int : 445 ms Normal sinus rhythm Septal infarct , age undetermined Abnormal ECG Confirmed by CHERYL CRUZ DO ([id number]), electronic news gathering editor HAJA ANDERSON ([id number]) on 04/23/2018 11:35:52 AM Referred By: Confirmed By:CHERYL CRUZ DO
== END 2018-04-21 06:30 | disposition home or self-care (01) ==
LOC: ERS 04:13
DX: S06.9X9A Unspecified intracranial injury with loss of consciousness of unspecified duration, initial encounter (principal); S00.83XA Contusion of other part of head, initial encounter; E04.9 Nontoxic goiter, unspecified; G40.909 Epilepsy, unspecified, not intractable, without status epilepticus; G43.909 Migraine, unspecified, not intractable, without status migrainosus; F03.90 Unspecified dementia, unspecified severity, without behavioral disturbance, psychotic disturbance, mood disturbance, and anxiety; Z79.82 Long term (current) use of aspirin; Z79.899 Other long term (current) drug therapy; W01.0XXA Fall on same level from slipping, tripping and stumbling without subsequent striking against object, initial encounter
CPT/HCPCS: 70450; 72125; 90471; 90715; 93005